=== PATIENT | female | born 1995 | race Caucasian/White ===

== ENCOUNTER 2019-12-29 22:58 | Emergency (ER) | payer SELFPAY ==
--- NOTE | 2019-12-30 00:30 | EDM.PDOC ---
ED HPI GENERAL MEDICAL PROBLEM - General Chief Complaint: Genitourinary Problem Stated Complaint: UTI Time Seen by Provider: 12/30/19 01:20 Source of Information: Reports: Patient History Limitations: Reports: No Limitations - History of Present Illness INITIAL COMMENTS - FREE TEXT/NARRATIVE: 24-year-old female presents to the ED with urinary frequency, urgency and dysuria for the last 4 or 5 days. She does not think she has been running a fever or experiencing any chills. She does have suprapubic abdominal pain and tenderness partially relieved by taking Azo [id number]. Appetite remains fair. Is her fourth infection within the last 6 months. Concerned about possibility of kidney stones or other sources for recurrent urinary tract infection. She is with an older gentleman and does indicate that she is fairly sexually active. Denies any possibility of as he has had a vasectomy. She has been on Cipro in the past for infection and Macrobid. She is only had 5 to 7 days of treatment and feels that she is never had the infection completely eradicated. Onset: Sudden Onset Date: 12/26/19 Duration: Day(s):, Getting Worse Location: Reports: Abdomen (Abdominal pressure discomfort and pain.), Other ( Has urinary frequency urgency and dysuria) Quality: Reports: Other Severity: Moderate (Frequency dysuria and urgency) Improves with: Reports: Other (Seems to make things better but makes her urine dark orange in color.) Worsens with: Reports: None Context: Denies: Activity, Exercise, Lifting, Sick Contact, Trauma, Other Associated Symptoms: Denies: No Other Symptoms, Confusion, Chest Pain, Cough, cough w sputum, Diaphoresis, Fever/Chills, Headaches, Loss of Appetite, Malaise , Nausea/Vomiting, Rash, Seizure, Shortness of Breath, Syncope, Weakness Treatments 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 Prior to this she had not experienced a UTI.) Social & Family History - Tobacco Use Smoking Status *Q: Current Every Day Smoker Years of Tobacco use: 7 Packs/Tins Daily: 1 - Recreational Drug Use Recreational Drug Use: No - Living Situation & Occupation Living situation: Reports: Occupation: Employed ED ROS GENERAL - Review of Systems Review Of Systems: See Below Constitutional: Reports: Malaise, Fatigue, Decreased Appetite. Denies: Fever, Chills HEENT: Reports: No Symptoms Respiratory: Reports: No Symptoms Cardiovascular: Reports: No Symptoms Endocrine: Reports: No Symptoms GI/Abdominal: Reports: Abdominal Pain (Prepubic abdominal pain) : Reports: Dysuria, Frequency, Urgency. Denies: Flank Pain, Irregular Menses Musculoskeletal: Reports: No Symptoms Skin: Reports: No Symptoms Neurological: Reports: No Symptoms Psychiatric: Reports: No Symptoms Hematologic/Lymphatic: Reports: No Symptoms Immunologic: Reports: No Symptoms ED EXAM, GI/ABD - Physical Exam Exam: See Below Exam Limited By: No Limitations General Appearance: Alert, WD/WN, No Apparent Distress, Other (Are as listed at 36.1 although she does feel mildly warm to palpation on her face.) Eyes: Bilateral: Normal Appearance Throat/Mouth: Normal Inspection, Normal Lips, Normal Teeth, Normal Oropharynx Head: Atraumatic, Normocephalic Neck: Normal Inspection, Supple, Non-Tender, Full Range of Motion. No: Lymphadenopathy (L), Lymphadenopathy (R) Respiratory/Chest: No Respiratory Distress, Lungs Clear, Normal Breath Sounds, No Accessory Muscle Use Cardiovascular: Normal Peripheral Pulses, Regular Rate, Rhythm, No Edema, No Gallop, No Murmur, No Rub GI/Abdominal Exam: Normal Bowel Sounds, Soft, Non-Tender, No Organomegaly, No Abnormal Bruit, No Mass, Pelvis Stable. No: Guarding, Rigid, Rebound, Tender Back Exam: Normal Inspection, Full Range of Motion. No: CVA Tenderness (L), CVA Tenderness (R) Extremities: Normal Inspection, Normal Range of Motion, Non-Tender Neurological: Alert, Oriented, CN II-XII Intact, Normal Cognition, Normal Gait Psychiatric: Normal Affect, Normal Mood Skin Exam: Warm, Dry, Intact, Normal Color, No Rash Course - Vital Signs Last Recorded V/S: Last Vital Signs Temp 36.1 C 12/29/19 23:24 Pulse 76 12/29/19 23:24 Resp 19 12/29/19 23:24 BP 123/70 12/29/19 23:24 Pulse Ox 100 12/29/19 23:24 - Orders/Labs/Meds Orders: Active Orders 24 hr Category Date Time Status Abdomen Pelvis wo Cont [CT] Stat Exams 12/30/19 00:39 Taken CULTURE URINE [RM] Stat Lab 12/30/19 00:53 Received Labs: Laboratory Tests 12/29/19 Range/Units 23:45 Urine Color Red H (Yellow) Urine Appearance Clear (Clear) Urine pH 5.0 (5.0-8.0) Ur Specific [place] 1.015 (1.005-1.030) Urine Protein 3+ H (Negative) Urine Glucose (UA) 1+ H (Negative) Urine Ketones 1+ H (Negative) Urine Occult Blood Negative (Negative) Urine Nitrite Positive H (Negative) Urine Bilirubin 2+ H (Negative) Urine Urobilinogen >=8.0 H (0.2-1.0) Ur Leukocyte Esterase 3+ H (Negative) Urine RBC 0-5 (0-5) /hpf Urine WBC 20-30 H (0-5) /hpf Ur Squamous Epith Cells 5-10 H (0-5) /hpf Urine Bacteria Moderate H (FEW) /hpf Urine Mucus Few (FEW) /hpf Meds: Medications Discontinued Medications Generic Name Dose Route Start Last Admin Trade Name Kim PRN Reason Stop Dose Admin Levofloxacin 500 mg 12/30/19 00:38 12/30/19 00:43 Levaquin PO 12/30/19 00:39 500 mg ONETIME ONE Administration - Radiology Interpretation Free Text/Narrative:: 24-year-old female presents the ED with acute urinary tract symptoms with urgency, frequency and dysuria x4 days. She reports this is her fourth urinary tract infection in the last 6 months. Getting Azo to relieve the urgency and frequency. Taking extra fluids. She does not feel that she has been running a fever and experienced no chills. She is concerned about possibility of a source for infection such as a kidney stone. No history of renal lithiasis. Scheduled to see a urologist in the near future. She denies any possibility of . Her has had a vasectomy. She is 0 para 0. Has appreciated the urine to be quite dark in color but since taking the Azo. - Re-Assessments/Exams Free Text/Narrative Re-Assessment/Exam: 12/30/19 00:28 Urinalysis is now back showing through 3+ proteinuria 1+ glucosuria 1+ ketones positive nitrates 3+ leukocyte esterase 20-30 WBCs per operative field and 0-5 RBCs. Moderate bacteria appreciated, culture ordered. She will be given the Levaquin 500 mg by mouth. 12/30/19 01:29 T of the abdomen pelvis has been performed per renal protocol. She does have a very small hiatal hernia. Liver appears homogeneous without any intraductal dilatation. Gallbladder is within normal limits showing no calcified gallstones. The stomach is full and seems to contain a calcified substance. Both kidneys are within normal limits. There is 3 small less than 1 mm stones embedded within the right renal medulla but there was no obstruction of the ureters. There was no bladder stones. There was scattered stool throughout the colon with a large amount of gas. Reassured in this regard. I therefore suspect her recurrent urinary tract infections are related to intercourse. She is instructed to empty her bladder 10 minutes after intercourse and to take a Macrobid 100 mg tablets after intercourse to try and prevent recurrent urinary tract infections. She has plans to follow-up with urologist in the near future. The plan will be to place her on Omnicef 300 mg twice daily for the next 12 days to clear up urinary tract infection as I suspect that she had a low-grade fever which would suggest early pyelonephritis. Departure - Departure Time of Disposition: 01:13 Disposition: Home, Self-Care 01 Condition: Fair Clinical Impression: UTI, Urinary tract infectious disease - Discharge Information *PRESCRIPTION DRUG MONITORING PROGRAM REVIEWED*: Not Applicable *COPY OF PRESCRIPTION DRUG MONITORING REPORT IN PATIENT JENNIFER: Not Applicable Prescriptions: Cefdinir [Omnicef] 300 mg PO BID #24 cap Nitrofurantoin Monohyd/M-Cryst [Macrobid 100 mg Capsule] 100 mg PO ASDIRECTED # 30 capsule Referrals: PCP,None [Primary Care Provider] - Forms: ED Department Discharge Additional Instructions: Evaluation emergency room tonight in regards to recurrent urinary tract infection over the last 6 months. You present to the ED with acute urinary tract symptoms of dysuria, urgency and frequency with lower abdominal discomfort and low-grade fever suggestive of early kidney infection. As you indicate this will be her fourth infection in 6 months. He of the abdomen and pelvis was completed today to make sure that there were no obstructive stones in the drainage tubes or ureters that could be causing recurrent urinary tract infection and none were found. No urinary bladder stones were identified either. You do have 3 small less than 1 mm stones embedded well within the tissue of the right kidney and none on the left. These may become problematic in the future but are not the source of recurrent infection. Likely source of recurrent infection is intercourse related. Suggest avoiding 10 minutes after intercourse and then taking antibiotic Macrobid 100 mg after intercourse to prevent recurrent urinary tract infection. In regards to treatment of today's urinary tract infection you were given an initial dose of antibiotic Levaquin 500 mg in the ED. You will need to fill the prescription tomorrow for antibiotic Omnicef 300 mg tablet twice daily for the next 12 days to clear up kidney infection. Suggest a repeat urinalysis be done by your primary care physician 7 to 10 days after finishing these antibiotics to make sure that infection has been completely eradicated. May use in 600 mg every 6 hours as needed if you develop fever, chills or increasing back pain. You should anticipate marked improvement in symptoms over the next 24 to 36 hours use Azo 1 tablet every 6 hours as needed to relieve burning and urinary frequency and urgency. Sepsis Event Note - Evaluation Sepsis Screening Result: No Definite Risk - Focused Exam Vital Signs: Vital Signs Temp Pulse Resp BP Pulse Ox 12/29/19 23:24 36.1 C 76 19 123/70 100 Date Exam was Performed: 12/30/19 Time Exam was Performed: :20 - My Orders Last 24 Hours: My Active Orders 12/30/19 00:39 Abdomen Pelvis wo Cont [CT] Stat 12/30/19 00:53 CULTURE URINE [RM] Stat - Assessment/Plan Last 24 Hours: My Active Orders 12/30/19 00:39 Abdomen Pelvis wo Cont [CT] Stat 12/30/19 00:53 CULTURE URINE [RM] Stat
[2019-12-30] MEDS ORDERED: Levofloxacin 250 MG Tab PO ONE (00:38)
--- NOTE | 2019-12-30 07:36 | CT ---
CT abdomen and pelvis Technique: Multiple axial sections were obtained from above the dome of the diaphragm inferiorly through the pubic symphysis. Intravenous and oral contrast was not utilized. Study has been performed as a ureteral stone protocol. Comparison: No previous abdominal imaging. Findings: Right kidney shows several minimal calcifications within the upper collecting system which are felt compatible with minimal nonobstructing calculi. No other abnormal calcifications are seen within the kidneys. No ureteral dilatation or ureteral calcifications are seen. Other calcifications are seen within the pelvis which are felt compatible with phleboliths. Visualized lung bases show nothing acute. Liver contains no focal parenchymal abnormality. Adrenal glands show no nodule. Pancreas shows no discrete abnormality. Gallbladder appears to be collapsed. Aorta shows no aneurysm. No retroperitoneal adenopathy or mesenteric abnormalities are seen. No pelvic mass or adenopathy is identified. Both ovaries are felt to be visualized and show follicles. Small amount of of air is identified within the bladder lumen. Appendix is felt to be seen and is normal in size. Bone window settings were reviewed which shows no acute osseous finding. Impression: 1. Small amount of air within the bladder presumably due to recent instrumentation. Please correlate. 2. Several very minimal calcifications within the upper right kidney compatible with nonobstructing renal stones. No ureteral dilatation or ureteral calcifications are seen. 3. No additional abnormality is appreciated on noncontrast CT study of the abdomen and pelvis. Diagnostic code #2 This report was dictated in [place] Standard Time I agree with preliminary report from [facility], finalized on 12/30/19, 2:35 AM Central Time
== END 2019-12-30 01:32 | disposition home or self-care (01) ==
LOC: JD.ED 22:58
DX: N39.0 Urinary tract infection, site not specified (principal); F17.210 Nicotine dependence, cigarettes, uncomplicated
CPT/HCPCS: 74176; 81001; 87086; 87088; 87186; 99284; A9270; 99283

== ENCOUNTER 2021-08-04 12:31 | Inpatient (IN) | payer MEDICARE, MEDICAID ==
[2021-08-04] MEDS ORDERED: Ondansetron 4 MG/2 ML SDV IVPUSH PRN ×2 (13:08→21:09)
[2021-08-04] MEDS ORDERED: Lidocaine 1% 50 ML MDV INJECT ONE (13:08)
[2021-08-04] MEDS ORDERED: Sodium Chloride 0.9% 10 ML Syringe FLUSH PRN (13:08)
[2021-08-04] MEDS ORDERED: Nalbuphine 10 MG/1 ML Vial IVPUSH PRN (13:08)
[2021-08-04] MEDS ORDERED: Oxytocin/Lactated Ringers 10 UNIT/1,000 ML BAG IV SCH ×2 (13:15)
[2021-08-04] MEDS ORDERED: Ampicillin 2 GM in Sodium Chloride 0.9% 100 ML IV ONE (13:30)
[2021-08-04] MEDS: Lactated Ringers 1,000 ML IV SCH ×4 (13:57→20:51)
[2021-08-04] MEDS ORDERED: Bupivacaine/fentaNYL/NS 100 ML Bag EPIDUR PRN (16:50)
[2021-08-04] MEDS ORDERED: diphenhydrAMINE 50 MG/ML SDV IVPUSH PRN ×3 (16:50→22:46)
[2021-08-04] MEDS ORDERED: fentaNYL 100 MCG/2 ML SDV EPIDUR PRN (16:50)
[2021-08-04] MEDS ORDERED: ePHEDrine 50 MG/ML SDV IVPUSH PRN ×2 (16:50→22:46)
--- NOTE | 2021-08-04 17:23 | PCM.PREANE ---
Preanesthetic Assessment - Procedure Proposed Procedure: ami - Anesthesia/Transfusion/Family Hx Type of Anesthesia Reaction: Excessive Nausea/Vomiting Family History of Anesthesia Reaction: No Transfusion History: No Prior Transfusion(s) - Review of Systems General: No Symptoms Pulmonary: Cough (smokers) Cardiovascular: No Symptoms Gastrointestinal: No Symptoms Neurological: No Symptoms Other: Reports: None - Physical Assessment Vital Signs: Last Vital Signs Temp 98.8 F 08/04/21 12:48 Pulse 88 08/04/21 12:48 Resp 16 08/04/21 12:48 BP 125/72 08/04/21 12:48 Pulse Ox 97 08/04/21 12:48 Height: 5 ft 4 in Weight: 76.113 kg ASA Class: 2 Mental Status: Alert & Oriented x3 Airway Class: Mallampati = 1 Dentition: Reports: Normal Dentition Thyro-Mental Finger Breadths: 3 Mouth Opening Finger Breadths: 3 ROM/Head Extension: Full Lungs: Clear to Auscultation, Normal Respiratory Effort Cardiovascular: Regular Rate, Regular Rhythm - Lab Values: Laboratory Last Values WBC 18.45 K/mm3 (3.98-10.04) H 08/04/21 13:30 RBC 3.76 M/mm3 (3.98-5.22) L 08/04/21 13:30 Hgb 12.0 gm/dl (11.2-15.7) 08/04/21 13:30 Hct 35.8 % (34.1-44.9) 08/04/21 13:30 MCV 95.2 fl (79.4-94.8) H 08/04/21 13:30 MCH 31.9 pg (25.6-32.2) 08/04/21 13:30 MCHC 33.5 g/dl (32.2-35.5) 08/04/21 13:30 RDW Std Deviation 43.2 fL (36.4-46.3) 08/04/21 13:30 Plt Count 428 K/mm3 (182-369) H 08/04/21 13:30 MPV 9.8 fl (9.4-12.3) 08/04/21 13:30 Neut % (Auto) 85.0 % (34.0-71.1) H 08/04/21 13:30 Lymph % (Auto) 8.5 % (19.3-51.7) L 08/04/21 13:30 [place] % (Auto) 4.7 % (4.7-12.5) 08/04/21 13:30 Eos % (Auto) 1.1 (0.7-5.8) 08/04/21 13:30 Baso % (Auto) 0.1 % (0.1-1.2) 08/04/21 13:30 Neut # (Auto) 15.68 K/mm3 (1.56-6.13) H 08/04/21 13:30 Lymph # (Auto) 1.57 K/mm3 (1.18-3.74) 08/04/21 13:30 [place] # (Auto) 0.87 K/mm3 (0.24-0.36) H 08/04/21 13:30 Eos # (Auto) 0.20 K/mm3 (0.04-0.36) 08/04/21 13:30 Baso # (Auto) 0.02 K/mm3 (0.01-0.08) 08/04/21 13:30 SARS-CoV-2 RNA (YANDEL) Negative (NEGATIVE) 08/04/21 13:18 Blood Type A POSITIVE 08/04/21 13:30 Gel Antibody Screen Negative 08/04/21 13:30 - Allergies Allergies/Adverse Reactions: Allergies Allergy/AdvReac Type Severity Reaction Status Date / Time No Known Allergies Allergy Verified 08/04/21 12:41 - Acknowledgements Anesthesia Type Planned: Epidural Pt an Appropriate Candidate for the Planned Anesthesia: Yes Alternatives and Risks of Anesthesia Discussed w Pt/Guardian: Yes Pt/Guardian Understands and Agrees with Anesthesia Plan: Yes PreAnesthesia Questionnaire - Past Health History Medical/Surgical History: Denies Medical/Surgical History Cardiovascular History: Reports: Heart Murmur Respiratory History: Reports: None Gastrointestinal History: Reports: None Genitourinary History: Reports: UTI, Recurrent Psychiatric History: Reports: Bipolar, Depression, Suicide Attempt, Other (See Below) Other Psychiatric History: Pt reports history of suicide attempt 10 years ago. Hematologic History: Reports: Anemia - Past Surgical History Musculoskeletal Surgical History: Reports: Other (See Below) (wrist) - SUBSTANCE USE Tobacco Use Status *Q: Current Every Day Tobacco User Tobacco Use Within Last Twelve Months: Cigarettes Second Hand Smoke Exposure: Yes Days Per Week of Alcohol Use: 0 Recreational Drug Use History: No - HOME MEDS Home Medications: Home Meds Ferrous Sulfate [Iron] 325 mg PO DAILY 08/04/21 [History] Nitrofurantoin Monohyd/M-Cryst [Macrobid 100 mg Capsule] 100 mg PO DAILY 08/04/21 [History] No122/Iron/Folic Acid [ Multi Tablet] 1 each PO DAILY 08/04/21 [History] - CURRENT (IN HOUSE) MEDS Current Meds: Current Medications Diphenhydramine HCl (Diphenhydramine 50 Mg/Ml Sdv) 25 mg IVPUSH Q6H PRN PRN Reason: pruritis Ephedrine Sulfate (Ephedrine 50 Mg/Ml Sdv) 5 mg IVPUSH ASDIRECTED PRN PRN Reason: Hypotension Fentanyl (Fentanyl 100 Mcg/2 Ml Sdv) 100 mcg EPIDUR Q3H PRN PRN Reason: Pain Last Admin: 08/04/21 17:03 Dose: 100 mcg Documented by: Fentanyl/Bupivacaine HCl (Bupivacaine/Fentanyl/Ns 100 Ml Bag) 100 ml EPIDUR ASDIRECTED PRN PRN Reason: Pain Ampicillin Sodium 1 gm/ Sodium (Chloride) 100 mls @ 200 mls/hr IV Q4H ELDER Oxytocin/Lactated Ringer's (Pitocin In Lr 10 Units/1,000 Ml) 10 unit in 1,000 mls @ 12 mls/hr IV TITRATE ELDER; Protocol Oxytocin/Lactated Ringer's (Pitocin In Lr 10 Units/1,000 Ml) 10 unit in 1,000 mls @ 500 mls/hr IV .CONTINUOUS ELDER; Protocol Lactated Ringer's (Ringers, Lactated) 1,000 mls @ 100 mls/hr IV ASDIRECTED ELDER Last Admin: 08/04/21 16:34 Dose: 100 mls/hr Documented by: Nalbuphine HCl (Nalbuphine 10 Mg/1 Ml Vial) 10 mg IVPUSH Q2H PRN PRN Reason: Pain Ondansetron HCl (Ondansetron 4 Mg/2 Ml Sdv) 4 mg IVPUSH Q4H PRN PRN Reason: Nausea/Vomiting Sodium Chloride (Sodium Chloride 0.9% 10 Ml Syringe) 10 ml FLUSH ASDIRECTED PRN PRN Reason: Keep Vein Open Discontinued Medications Ampicillin Sodium 2 gm/ Sodium (Chloride) 100 mls @ 200 mls/hr IV ONETIME ONE Stop: 08/04/21 13:59 Last Admin: 08/04/21 13:57 Dose: 200 mls/hr Documented by: Lidocaine HCl (Lidocaine 1% 50 Ml Mdv) 50 ml INJECT ONETIME ONE Stop: 08/04/21 13:09
[2021-08-04] MEDS: Ampicillin 1 GM in Sodium Chloride 0.9% 100 ML IV SCH ×2 (17:31→22:47)
[2021-08-04] MEDS ORDERED: Bupivacaine 0.25% 10 ML SDV ONE (18:00)
[2021-08-04] MEDS ORDERED: Metoclopramide 10 MG/2 ML SDV ONE (20:25)
[2021-08-04] MEDS ORDERED: Citric Acid/Sodium Citrate Solution 30 ML Cup ONE (20:25)
[2021-08-04] MEDS ORDERED: ceFAZolin 2 GM in Premix Bag 1 BAG IV ONE (20:26)
[2021-08-04] MEDS ORDERED: Metoclopramide 10 MG/2 ML SDV IVPUSH ONE (20:27)
[2021-08-04] MEDS ORDERED: Citric Acid/Sodium Citrate Solution 30 ML Cup PO ONE (20:30)
[2021-08-04] MEDS ORDERED: Azithromycin 500 MG in Sodium Chloride 0.9% 250 ML IV ONE (20:30)
[2021-08-04] MEDS ORDERED: Bupivacaine 0.5% 30 ML SDV ONE (20:36)
[2021-08-04] MEDS ORDERED: Lactated Ringers 2,000 ML ONE (20:37)
[2021-08-04] MEDS ORDERED: Ketorolac 30 MG/ML SDV ONE (20:37)
[2021-08-04] MEDS ORDERED: Oxytocin 10 Units/1 ML SDV ONE (20:37)
[2021-08-04] MEDS ORDERED: Ondansetron 4 MG/2 ML SDV ONE ×2 (20:37→21:13)
[2021-08-04] MEDS ORDERED: ceFAZolin 1 GM Vial ONE (20:37)
--- NOTE | 2021-08-04 20:39 | PCM.LDHP ---
L&D History of Present Illness - General Date of Service: 08/04/21 Admit Problem/Dx: Patient Status Order with Admit Dx/Problem 08/04/21 13:09 Patient Status [ADT] Routine Admission Diagnosis/Problem Admission Diagnosis/Problem - History of Present Illness Introduction:: 26 year old at 39w1 here in labor. PNC with myself without complications Pain Score: 0 - Related Data Allergies/Adverse Reactions: Allergies Allergy/AdvReac Type Severity Reaction Status Date / Time No Known Allergies Allergy Verified 08/04/21 12:41 Home Medications: Home Meds Ferrous Sulfate [Iron] 325 mg PO DAILY 08/04/21 [History] Nitrofurantoin Monohyd/M-Cryst [Macrobid 100 mg Capsule] 100 mg PO DAILY 08/04/21 [History] No122/Iron/Folic Acid [ Multi Tablet] 1 each PO DAILY 08/04/21 [History] Past Medical History - Past Health History Medical/Surgical History: Denies Medical/Surgical History Cardiovascular History: Reports: Heart Murmur Respiratory History: Reports: None Gastrointestinal History: Reports: None Genitourinary History: Reports: UTI, Recurrent Psychiatric History: Reports: Bipolar, Depression, Suicide Attempt, Other (See Below) Other Psychiatric History: Pt reports history of suicide attempt 10 years ago. Hematologic History: Reports: Anemia - Past Surgical History Musculoskeletal Surgical History: Reports: Other (See Below) (wrist) Social & Family History - Family History Family Medical History: No Pertinent Family History - Tobacco Use Tobacco Use Status *Q: Current Every Day Tobacco User Years of Tobacco use: 10 Packs/Tins Daily: 1 Used Tobacco, but Quit: No Second Hand Smoke Exposure: Yes - Caffeine Use Caffeine Use: Reports: None - Alcohol Use Days Per Week of Alcohol Use: 0 - Recreational Drug Use Recreational Drug Use: No - Living Situation & Occupation Living situation: Reports: Occupation: Employed H&P Review of Systems - Review of Systems: Review Of Systems: See Below General: Reports: No Symptoms HEENT: Reports: No Symptoms Pulmonary: Reports: No Symptoms Cardiovascular: Reports: No Symptoms Gastrointestinal: Reports: No Symptoms Genitourinary: Reports: No Symptoms Musculoskeletal: Reports: No Symptoms Skin: Reports: No Symptoms Psychiatric: Reports: No Symptoms Neurological: Reports: No Symptoms Hematologic/Lymphatic: Reports: No Symptoms Immunologic: Reports: No Symptoms L&D Exam - Exam Exam: See Below - Vital Signs Vital Signs: Last Vital Signs Temp 37.1 C 08/04/21 12:48 Pulse 88 08/04/21 12:48 Resp 16 08/04/21 12:48 BP 125/72 08/04/21 12:48 Pulse Ox 97 08/04/21 12:48 Weight: 76.113 kg - OB Specific Contraction Intensity: Moderate to Strong Movement: Active Heart Tones: Present Heart Rate (FHR) Variability: Moderate (6-25 bpm) Presentation: Vertex - Esposito Score Esposito Score Cervix Position: Midposition Esposito Score Consistency: Soft Esposito Score Effacement: 51-70% Esposito Score 's Station: -2 - Exam General: Alert, Oriented HEENT: PERRLA, Conjunctiva Clear, EACs Clear, EOMI, Hearing Intact, Mucosa Moist & [place], Nares Patent, Normal Nasal Septum, Posterior Pharynx Clear, TMs Clear Neck: Supple, Trachea Midline Lungs: Clear to Auscultation, Normal Respiratory Effort Cardiovascular: Regular Rate, Regular Rhythm GI/Abdominal Exam: Normal Bowel Sounds, Soft, Non-Tender, No Organomegaly, No Distention, No Abnormal Bruit, No Mass, Pelvis Stable Rectal Exam: Normal Exam Extremities: Normal Inspection, Normal Range of Motion, Non-Tender, No Pedal Edema, Normal Capillary Refill Skin: Warm, Dry, Intact Neurological: Cranial Nerves Intact, Reflexes Equal Bilateral Psychiatric: Alert, Normal Affect, Normal Mood - Patient Data Lab Results Last 24 hrs: Laboratory Results - last 24 hr 08/04/21 08/04/21 08/04/21 Range/Units 13:18 13:30 13:30 WBC 18.45 H (3.98-10.04) K/mm3 RBC 3.76 L (3.98-5.22) M/mm3 Hgb 12.0 (11.2-15.7) gm/dl Hct 35.8 (34.1-44.9) % MCV 95.2 H (79.4-94.8) fl MCH 31.9 (25.6-32.2) pg MCHC 33.5 (32.2-35.5) g/dl RDW Std Deviation 43.2 (36.4-46.3) fL Plt Count 428 H (182-369) K/mm3 MPV 9.8 (9.4-12.3) fl Neut % (Auto) 85.0 H (34.0-71.1) % Lymph % (Auto) 8.5 L (19.3-51.7) % [place] % (Auto) 4.7 (4.7-12.5) % Eos % (Auto) 1.1 (0.7-5.8) Baso % (Auto) 0.1 (0.1-1.2) % Neut # (Auto) 15.68 H (1.56-6.13) K/mm3 Lymph # (Auto) 1.57 (1.18-3.74) K/mm3 [place] # (Auto) 0.87 H (0.24-0.36) K/mm3 Eos # (Auto) 0.20 (0.04-0.36) K/mm3 Baso # (Auto) 0.02 (0.01-0.08) K/mm3 SARS-CoV-2 RNA (YANDEL) Negative (NEGATIVE) Blood Type A POSITIVE Gel Antibody Screen Negative Result Diagrams: 08/04/21 13:30 Problem List Initiated/Reviewed/Updated: Yes Orders Last 24hrs: Active Orders 24 hr Category Date Time Status Patient Status [ADT] Routine ADT 08/04/21 13:09 Active Activity as Tolerated [RC] PFP Care 08/04/21 13:09 Active Communication Order [RC] ASDIRECTED Care 08/04/21 13:09 Active Heart Tones [RC] ASDIRECTED Care 08/04/21 13:10 Active Non Stress Test [RC] PER UNIT ROUTINE Care 08/04/21 13:09 Active Notify Provider [RC] ASDIRECTED Care 08/04/21 16:50 Active Notify Provider [RC] PFP Care 08/04/21 13:09 Active Notify Provider [RC] PRN Care 08/04/21 13:09 Active Peripheral IV Care [RC] . DIRECTED Care 08/04/21 13:10 Active Procedure Site Prep Instruct [RC] ASDIRECTED Care 08/04/21 20:21 Active Pump Management, Intrathecal [RC] ASDIRECTED Care 08/04/21 13:11 Active Urinary Catheter Assessment [RC] ASDIRECTED Care 08/04/21 13:08 Active Verify Patient Consent Obtain [RC] PER UNIT ROUTINE Care 08/04/21 20:21 Active Vital Signs [RC] PER UNIT ROUTINE Care 08/04/21 13:09 Active Regular Diet [DIET] Diet 08/04/21 Breakfast Active RAPID PLASMA REAGIN,RPR [CHEM] Routine Lab 08/04/21 13:30 Received Ampicillin 1 gm Med 08/04/21 17:30 Active Sodium Chloride 0.9% [Normal Saline] 100 ml IV Q4H Azithromycin [Zithromax] 500 mg Med 08/04/21 20:30 Active Sodium Chloride 0.9% [Normal Saline (AdvBag)] 250 ml IV ONETIME Bupivacaine/fentaNYL/NS [fentaNYL/Bupivacaine/NS 2 MCG- Med 08/04/21 16:50 Active 0.125% 100 ML] 100 ml EPIDUR ASDIRECTED PRN Lactated Ringers [Ringers, Lactated] 1,000 ml Med 08/04/21 13:15 Active IV ASDIRECTED Nalbuphine [Nubain] Med 08/04/21 13:08 Active 10 mg IVPUSH Q2H PRN Ondansetron [Zofran] Med 08/04/21 13:08 Active 4 mg IVPUSH Q4H PRN Oxytocin/Lactated Ringers [Pitocin in LR 10 Units/1,000 Med 08/04/21 13:15 Active ML] 10 unit in 1,000 ml IV .CONTINUOUS Oxytocin/Lactated Ringers [Pitocin in LR 10 Units/1,000 Med 08/04/21 13:15 Active ML] 10 unit in 1,000 ml IV TITRATE Sodium Chloride 0.9% [Saline Flush] Med 08/04/21 13:08 Active 10 ml FLUSH ASDIRECTED PRN ceFAZolin [Ancef 2 GM/50 ML] 2 gm Med 08/04/21 20:26 Active Premix Bag 1 bag IV ONETIME diphenhydrAMINE [Benadryl] Med 08/04/21 16:50 Active 25 mg IVPUSH Q6H PRN ePHEDrine [ePHEDrine sulfate] Med 08/04/21 16:50 Active 5 mg IVPUSH ASDIRECTED PRN fentaNYL [Sublimaze] Med 08/04/21 16:50 Active 100 mcg EPIDUR Q3H PRN Electronic Heart Tones Ext w TOCO [WOMSER] Oth 08/04/21 13:09 Ordered Routine Electronic Heart Tones Internal [WOMSER] Per Unit Oth 08/04/21 13:09 Ordered Routine Peripheral IV Insertion Adult [OM.PC] Routine Oth 08/04/21 13:09 Ordered Schedule Procedure [COMM] Per Unit Routine Oth 08/04/21 20:21 Ordered Resuscitation Status Routine Resus Stat 08/04/21 13:08 Ordered Medication Orders Diphenhydramine HCl (Diphenhydramine 50 Mg/Ml Sdv) 25 mg IVPUSH Q6H PRN PRN Reason: pruritis Ephedrine Sulfate (Ephedrine 50 Mg/Ml Sdv) 5 mg IVPUSH ASDIRECTED PRN PRN Reason: Hypotension Fentanyl (Fentanyl 100 Mcg/2 Ml Sdv) 100 mcg EPIDUR Q3H PRN PRN Reason: Pain Last Admin: 08/04/21 17:03 Dose: 100 mcg Documented by: SUSAN Fentanyl/Bupivacaine HCl (Bupivacaine/Fentanyl/Ns 100 Ml Bag) 100 ml EPIDUR ASDIRECTED PRN PRN Reason: Pain Last Admin: 08/04/21 17:43 Dose: 100 ml Documented by: SUSAN Ampicillin Sodium 1 gm/ Sodium (Chloride) 100 mls @ 200 mls/hr IV Q4H ELDER Last Admin: 08/04/21 17:31 Dose: 200 mls/hr Documented by: SUSAN Oxytocin/Lactated Ringer's (Pitocin In Lr 10 Units/1,000 Ml) 10 unit in 1,000 mls @ 12 mls/hr IV TITRATE ELDER; Protocol Oxytocin/Lactated Ringer's (Pitocin In Lr 10 Units/1,000 Ml) 10 unit in 1,000 mls @ 500 mls/hr IV .CONTINUOUS ELDER; Protocol Lactated Ringer's (Ringers, Lactated) 1,000 mls @ 100 mls/hr IV ASDIRECTED ELDER Last Infusion: 08/04/21 20:24 Dose: 999 mls/hr Documented by: Admin: 08/04/21 18:38 Dose: 100 mls/hr Documented by: Infusion: 08/04/21 18:38 Dose: 100 mls/hr Documented by: Admin: 08/04/21 16:34 Dose: 100 mls/hr Documented by: Infusion: 08/04/21 16:34 Dose: 100 mls/hr Documented by: [id number] Admin: 08/04/21 13:57 Dose: 100 mls/hr Documented by: [email or web address] Cefazolin Sodium/Dextrose 2 gm (/ Premix) 50 mls @ 100 mls/hr IV ONETIME ONE Stop: 08/04/21 20:55 Azithromycin 500 mg/ Sodium (Chloride) 250 mls @ 250 mls/hr IV ONETIME ONE Stop: 08/04/21 21:29 Last Admin: 08/04/21 20:34 Dose: 250 mls/hr Documented by: STEFANIE Nalbuphine HCl (Nalbuphine 10 Mg/1 Ml Vial) 10 mg IVPUSH Q2H PRN PRN Reason: Pain Ondansetron HCl (Ondansetron 4 Mg/2 Ml Sdv) 4 mg IVPUSH Q4H PRN PRN Reason: Nausea/Vomiting Sodium Chloride (Sodium Chloride 0.9% 10 Ml Syringe) 10 ml FLUSH ASDIRECTED PRN PRN Reason: Keep Vein Open Assessment/Plan Comment:: 26 in active labor. AROM of clear fluid Planning epidural.
--- NOTE | 2021-08-04 20:40 | PCM.PNLD ---
Labor Progress Note - VS & Meds Vital Signs: Last Vital Signs Temp 37.1 C 08/04/21 12:48 Pulse 88 08/04/21 12:48 Resp 16 08/04/21 12:48 BP 125/72 08/04/21 12:48 Pulse Ox 97 08/04/21 12:48 Active Medications: Current Medications Diphenhydramine HCl (Diphenhydramine 50 Mg/Ml Sdv) 25 mg IVPUSH Q6H PRN PRN Reason: pruritis Ephedrine Sulfate (Ephedrine 50 Mg/Ml Sdv) 5 mg IVPUSH ASDIRECTED PRN PRN Reason: Hypotension Fentanyl (Fentanyl 100 Mcg/2 Ml Sdv) 100 mcg EPIDUR Q3H PRN PRN Reason: Pain Last Admin: 08/04/21 17:03 Dose: 100 mcg Documented by: Fentanyl/Bupivacaine HCl (Bupivacaine/Fentanyl/Ns 100 Ml Bag) 100 ml EPIDUR ASDIRECTED PRN PRN Reason: Pain Last Admin: 08/04/21 17:43 Dose: 100 ml Documented by: Ampicillin Sodium 1 gm/ Sodium (Chloride) 100 mls @ 200 mls/hr IV Q4H ELDER Last Admin: 08/04/21 17:31 Dose: 200 mls/hr Documented by: Oxytocin/Lactated Ringer's (Pitocin In Lr 10 Units/1,000 Ml) 10 unit in 1,000 mls @ 12 mls/hr IV TITRATE ELDER; Protocol Oxytocin/Lactated Ringer's (Pitocin In Lr 10 Units/1,000 Ml) 10 unit in 1,000 mls @ 500 mls/hr IV .CONTINUOUS ELDER; Protocol Lactated Ringer's (Ringers, Lactated) 1,000 mls @ 100 mls/hr IV ASDIRECTED ELDER Last Infusion: 08/04/21 20:24 Dose: 999 mls/hr Documented by: Cefazolin Sodium/Dextrose 2 gm (/ Premix) 50 mls @ 100 mls/hr IV ONETIME ONE Stop: 08/04/21 20:55 Azithromycin 500 mg/ Sodium (Chloride) 250 mls @ 250 mls/hr IV ONETIME ONE Stop: 08/04/21 21:29 Last Admin: 08/04/21 20:34 Dose: 250 mls/hr Documented by: Nalbuphine HCl (Nalbuphine 10 Mg/1 Ml Vial) 10 mg IVPUSH Q2H PRN PRN Reason: Pain Ondansetron HCl (Ondansetron 4 Mg/2 Ml Sdv) 4 mg IVPUSH Q4H PRN PRN Reason: Nausea/Vomiting Sodium Chloride (Sodium Chloride 0.9% 10 Ml Syringe) 10 ml FLUSH ASDIRECTED PRN PRN Reason: Keep Vein Open Discontinued Medications Bupivacaine HCl (Bupivacaine 0.5% 30 Ml Sdv) Confirm Administered Dose 30 ml .ROUTE .STK-MED ONE Stop: 08/04/21 20:37 Cefazolin Sodium (Cefazolin 1 Gm Vial) Confirm Administered Dose 2 gm .ROUTE .STK-MED ONE Stop: 08/04/21 20:38 Citric Acid/Sodium Citrate (Citric Acid/Sodium Citrate Solution 30 Ml Cup) 30 ml PO ONETIME ONE Stop: 08/04/21 20:31 Last Admin: 08/04/21 20:33 Dose: 30 ml Documented by: Citric Acid/Sodium Citrate (Citric Acid/Sodium Citrate Solution 30 Ml Cup) Confirm Administered Dose 30 ml .ROUTE .STK-MED ONE Stop: 08/04/21 20:26 Ampicillin Sodium 2 gm/ Sodium (Chloride) 100 mls @ 200 mls/hr IV ONETIME ONE Stop: 08/04/21 13:59 Last Admin: 08/04/21 13:57 Dose: 200 mls/hr Documented by: Lactated Ringer's (Ringers, Lactated) Confirm Administered Dose 2,000 mls @ as directed .ROUTE .STK-MED ONE Stop: 08/04/21 20:38 Ketorolac Tromethamine (Ketorolac 30 Mg/Ml Sdv) Confirm Administered Dose 30 mg .ROUTE .STK-MED ONE Stop: 08/04/21 20:38 Lidocaine HCl (Lidocaine 1% 50 Ml Mdv) 50 ml INJECT ONETIME ONE Stop: 08/04/21 13:09 Metoclopramide HCl (Metoclopramide 10 Mg/2 Ml Sdv) 10 mg IVPUSH ONETIME ONE Stop: 08/04/21 20:28 Last Admin: 08/04/21 20:34 Dose: 10 mg Documented by: Metoclopramide HCl (Metoclopramide 10 Mg/2 Ml Sdv) Confirm Administered Dose 10 mg .ROUTE .STK-MED ONE Stop: 08/04/21 20:26 Ondansetron HCl (Ondansetron 4 Mg/2 Ml Sdv) Confirm Administered Dose 4 mg .ROUTE .STK-MED ONE Stop: 08/04/21 20:38 Oxytocin (Oxytocin 10 Units/1 Ml Sdv) Confirm Administered Dose 10 unit .ROUTE .STK-MED ONE Stop: 08/04/21 20:38 - Uterine Contractions Contraction Intensity: Moderate to Strong - Monitoring Heart Rate (FHR) Variability: Moderate (6-25 bpm) Strip Review: Category I - Labor Progress (Free Text) Labor Progress: On RN exam estefania breech. Ultrasound confirmed. RBA of discussed. Patient voices understanding and wishes to proceed.
[2021-08-04] MEDS ORDERED: Sodium Bicarbonate 8.4% 50 MEQ/50 ML SDV ONE (20:41)
[2021-08-04] MEDS ORDERED: Lidocaine 2% with EPINEPHrine 1:200,000 20 ML SDV ONE (20:41)
[2021-08-04] MEDS ORDERED: Morphine PF 10 MG/10 ML SDV ONE (20:42)
[2021-08-04] MEDS ORDERED: Meperidine 50 MG/ML Vial IVPUSH PRN (21:09)
[2021-08-04] MEDS ORDERED: fentaNYL 100 MCG/2 ML SDV IVPUSH PRN (21:09)
--- NOTE | 2021-08-04 21:51 | PCM.POSTAN ---
POST ANESTHESIA ASSESSMENT - MENTAL STATUS Mental Status: Alert, Oriented - VITAL SIGNS Vital Signs: Last Vital Signs Temp 98.8 F 08/04/21 12:48 Pulse 88 08/04/21 12:48 Resp 16 08/04/21 12:48 BP 125/72 08/04/21 12:48 Pulse Ox 97 08/04/21 12:48 2143 114/60 100% 90 18 98.3 - RESPIRATORY Respiratory Status: Respiratory Rate WNL, Airway Patent, O2 Saturation Stable, Supplemental Oxygen - CARDIOVASCULAR CV Status: Pulse Rate WNL, Blood Pressure Stable - GASTROINTESTINAL GI Status: No Symptoms - PAIN Pain Score: 0 - POST OP HYDRATION Hydration Status: Adequate & Stable
--- NOTE | 2021-08-04 21:54 | PCM.OPNOTE ---
- General Post-Op/Procedure Note Date of Surgery/Procedure: 08/04/21 Operative Procedure(s): primary section Findings: Viable male, weight 6#12oz, 8/9 apgars at 2110. Normal uterus tubes and ovaries. Breech. Pre Op Diagnosis: breech, 39w1d Post-Op Diagnosis: Same Anesthesia Technique: Epidural Primary Surgeon: Jennifer Plascencia Anesthesia Provider: Zaina Marques Crew Attendant: Willow Young Pathology: none Fluid Replacement, Intraop: 1,500 Output, Urine Amount: 150 EBL in mLs: 700 Complications: None Condition: Good Free Text/Narrative:: Intake & Output 08/04/21 08/04/21 08/04/21 06:59 14:59 22:59 Intake Total 3520 Output Total 550 Balance 2970 The patient was taken to the operating room where epidural anesthesia was dosed to surgical levels without difficulty. The patient was prepped and draped in the usual sterile fashion in the dorsal supine position with a leftward tilt. A Pfannenstiel skin incision was made with the scalpel and carried through to the underlying layer of fascia. The fascia was incised in the midline and extended laterally using Spangler scissors. Aida clamps were used to elevate the superior aspect of the fascial incision, which was elevated, and the underlying rectus muscles were dissected off bluntly and using Spangler scissors. Attention was then turned to the inferior aspect of the fascial incision, which in similar fashion was grasped with Aida clamps, elevated, and the underlying rectus muscles were dissected off bluntly and using the spangler. The rectus muscles were dissected in the midline. The peritoneum was entered bluntly; this incision was extended superiorly and inferiorly with good visualization of the bladder. The bladder blade was inserted. The vesicouterine peritoneum was identified and entered sharply using Metzenbaum scissors. This incision was extended laterally and the bladder flap was created digitally. The bladder blade was reinserted. The lower uterine segment was incised in a transverse fashion using the scalpel and with digital traction. Clear fluid was noted. The infant was subsequently delivered by usual breech maneuvers. The cord was clamped and cut. The was subsequently handed to the awaiting roll grinder whose presence had been requested.. The placenta was expressed intact with a three-vessel cord noted. The uterus was exteriorized and cleared of all clots and debris. The uterine incision was repaired in 2 layers using 0 monocryl. Hemostasis was visualized. Hemostasis was visualized bilaterally. The uterus was returned to the abdomen. The uterine incision was reexamined and it was noted to be hemostatic. The pelvis was copiously irrigated. The fascia was closed with 1 PDS suture, and the skin was closed with 3-0 monocryl. Sponge, lap, and instrument counts were correct x2. The patient was stable at the completion of the procedure and was subsequently transferred to the recovery room in stable condition.
[2021-08-04] MEDS ORDERED: Naloxone 0.4 MG/ML SDV IVPUSH PRN (22:46)
[2021-08-04] MEDS ORDERED: Dextrose 5%-Lactated Ringers 1,000 ML IV SCH (22:46)
[2021-08-05] MEDS: Acetaminophen/oxyCODONE 325-5 MG Tab PO PRN ×3 (00:17→19:56)
[2021-08-05] MEDS: Ketorolac 30 MG/ML SDV IVPUSH SCH ×3 (03:33→15:15)
--- NOTE | 2021-08-05 07:45 | PCM48HPAN ---
Post Anesthesia Note - EVALUATION WITHIN 48HRS OF ANESTHETIC Vital Signs in Normal Range: Yes Patient Participated in Evaluation: Yes Respiratory Function Stable: Yes Airway Patent: Yes Cardiovascular Function Stable: Yes Hydration Status Stable: Yes Pain Control Satisfactory: Yes Nausea and Vomiting Control Satisfactory: Yes Mental Status Recovered: Yes Vital Signs: Last Vital Signs Temp 97.5 F 08/05/21 03:35 Pulse 74 08/05/21 03:35 Resp 14 08/05/21 06:54 BP 117/59 L 08/05/21 03:35 Pulse Ox 97 08/05/21 06:54 - COMMENTS/OBSERVATIONS Free Text/Narrative:: Patient resting in bed holding baby when visiting with patient. Patient stated that she was "very happy" with her epidural and experience. Patient complained of mild back pain in epidural placement site but is controlled and has not gotten worse. Discussed signs and symptoms of infection, post-dural puncture headaches, post- depression, and if patient experiences increased back discomfort. Encouraged patient if any of those signs or symptoms develop to contact OB/Anesthesia so the patient can be treated accordingly if needed. Patient verbalized understanding. Patient did not voice any questions or concerns at this time. Marie Young, FOOD TECHNOLOGY TEACHER
[2021-08-05] MEDS: Nicotine 21 MG/24 Hr Patch TRDERM SCH (11:24)
--- NOTE | 2021-08-05 16:34 | PCM.SN.2 ---
- Free Text/Narrative Note: Post Operative Progress Note POD #1 Subjective: Doing well overall. Ambulating without difficulty. Lochia minimal. Stuart draining clear urine. Passing flatus. Tolerating regular diet without nausea or vomiting. Pain controlled with oral medications. Breast-feeding with minimal difficulty. Objective: Vitals: Vital Signs - 24 hr 08/04/21 08/04/21 08/04/21 21:43 21:45 22:00 Temperature Temperature [ 36.8 C 36.6 C 36.5 C Temporal] Pulse, Peripheral Pulse, 90 77 80 Peripheral [ Pulse Oximetry] Respiratory 18 16 13 Rate Blood Pressure Blood Pressure 134/71 114/60 112/56 L [Left Upper Arm ] O2 Sat by Pulse 100 98 99 Oximetry O2 Sat by Pulse 100 100 Oximetry [ Nasal Cannula] 08/04/21 08/04/21 08/04/21 22:15 22:30 23:01 Temperature 36.7 C Temperature [ 36.3 C 36.6 C Temporal] Pulse, 99 Peripheral Pulse, 89 86 Peripheral [ Pulse Oximetry] Respiratory 15 13 16 Rate Blood Pressure 122/65 Blood Pressure 114/53 L 111/58 L [Left Upper Arm ] O2 Sat by Pulse 99 95 96 Oximetry O2 Sat by Pulse 99 100 Oximetry [ Nasal Cannula] 08/04/21 08/05/21 08/05/21 23:33 00:07 01:00 Temperature 37.3 C 36.7 C Temperature [ Temporal] Pulse, 104 H 105 H Peripheral Pulse, Peripheral [ Pulse Oximetry] Respiratory 14 16 16 Rate Blood Pressure 122/63 99/80 Blood Pressure [Left Upper Arm ] O2 Sat by Pulse 96 97 98 Oximetry O2 Sat by Pulse Oximetry [ Nasal Cannula] 08/05/21 08/05/21 08/05/21 01:54 02:55 03:35 Temperature 36.3 C 36.4 C Temperature [ Temporal] Pulse, 78 74 Peripheral Pulse, Peripheral [ Pulse Oximetry] Respiratory 14 14 14 Rate Blood Pressure 126/81 117/59 L Blood Pressure [Left Upper Arm ] O2 Sat by Pulse 100 97 97 Oximetry O2 Sat by Pulse Oximetry [ Nasal Cannula] 08/05/21 08/05/21 08/05/21 08:00 09:00 09:05 Temperature 36.6 C Temperature [ Temporal] Pulse, 77 Peripheral Pulse, Peripheral [ Pulse Oximetry] Respiratory 15 15 15 Rate Blood Pressure 104/58 L Blood Pressure [Left Upper Arm ] O2 Sat by Pulse 99 98 99 Oximetry O2 Sat by Pulse Oximetry [ Nasal Cannula] Physical Exam General: Alert and oriented, no acute distress Lungs: Clear to auscultation bilaterally Heart: Regular rate and rhythm Abdomen: Soft, minimal appropriate tenderness, non-distended, fundus midline, nontender and at the umbilicus Incision: Clean, dry and intact, no erythema, bleeding or drainage with Steri- Strips in place Extremities: No edema Labs: Laboratory Results - last 24 hr 08/04/21 08/05/21 Range/Units 13:30 09:44 WBC 14.40 H (3.98-10.04) K/mm3 RBC 3.09 L (3.98-5.22) M/mm3 Hgb 9.8 L D (11.2-15.7) gm/dl Hct 30.0 L (34.1-44.9) % MCV 97.1 H (79.4-94.8) fl MCH 31.7 (25.6-32.2) pg MCHC 32.7 (32.2-35.5) g/dl RDW Std Deviation 43.3 (36.4-46.3) fL Plt Count 350 D (182-369) K/mm3 MPV 9.6 (9.4-12.3) fl Neut % (Auto) 79.5 H (34.0-71.1) % Lymph % (Auto) 12.8 L (19.3-51.7) % [place] % (Auto) 6.3 (4.7-12.5) % Eos % (Auto) 1.0 (0.7-5.8) Baso % (Auto) 0.1 (0.1-1.2) % Neut # (Auto) 11.45 H (1.56-6.13) K/mm3 Lymph # (Auto) 1.85 (1.18-3.74) K/mm3 [place] # (Auto) 0.90 H (0.24-0.36) K/mm3 Eos # (Auto) 0.14 (0.04-0.36) K/mm3 Baso # (Auto) 0.01 (0.01-0.08) K/mm3 RPR Non-reactive (NONREACTIVE) ASSESSMENT: 26-year-old female -0-0-1 s/p primary section POD #1 for breech presentation, complicated by tobacco use in and currently has nicotine patch in place PLAN: Doing well Breast-feeding with minimal difficulty. Assist as needed Incision healing well. Continue to keep clean and dry. Lochia minimal. Continue to monitor for appropriate lochia. Continue routine post-operative care Continue nicotine patch for tobacco use, patient reports she is interested in smoking cessation aids Anticipate discharge home tomorrow Raul Farley MD 4:35 PM 08/05/2021 Time Documentation
[2021-08-05] MEDS ORDERED: Ibuprofen 600 MG Tab PO PRN (21:30)
[2021-08-06] MEDS: Acetaminophen/oxyCODONE 325-5 MG Tab PO PRN ×4 (00:23→13:48)
[2021-08-06] MEDS ORDERED: Docusate Sodium 100 MG Cap PO PRN (10:14)
[2021-08-06] MEDS: Nicotine 21 MG/24 Hr Patch TRDERM SCH (10:28)
--- NOTE | 2021-08-06 10:38 | PCM.SN.2 ---
- Free Text/Narrative Note: Post Operative Progress Note POD #2 Subjective: Doing well overall. Ambulating without difficulty. Lochia minimal. Voiding without difficulty after removal of the urinary catheter. Passing flatus. Tolerating regular diet without nausea or vomiting. Pain controlled with oral medications. Breast-feeding with minimal difficulty. Objective: Vitals: Vital Signs - 24 hr 08/05/21 08/05/21 08/05/21 14:00 15:00 15:40 Temperature 36.4 C Pulse, 85 Peripheral Respiratory 14 15 15 Rate Blood Pressure 119/64 O2 Sat by Pulse 98 97 99 Oximetry 08/05/21 08/05/21 08/06/21 19:00 20:01 04:27 Temperature 36.6 C 36.3 C Pulse, 87 67 Peripheral Respiratory 14 14 14 Rate Blood Pressure 120/73 120/66 O2 Sat by Pulse 97 96 95 Oximetry 08/06/21 10:07 Temperature 36.4 C Pulse, 86 Peripheral Respiratory 16 Rate Blood Pressure 122/75 O2 Sat by Pulse 100 Oximetry Physical Exam General: Alert and oriented, no acute distress Lungs: Clear to auscultation bilaterally Heart: Regular rate and rhythm Abdomen: Soft, minimal appropriate tenderness, non-distended, fundus midline, nontender and 1 fingerbreadth below the umbilicus Incision: Clean, dry and intact, no erythema, bleeding or drainage with Steri- Strips in place Extremities: No edema ASSESSMENT: 26-year-old female -0-0-1 s/p primary section POD #2 for breech presentation, complicated by tobacco use in and currently has nicotine patch in place PLAN: Doing well Breast-feeding with minimal difficulty. Assist as needed Incision healing well. Continue to keep clean and dry. Lochia minimal. Continue to monitor for appropriate lochia. Continue routine post-operative care Continue nicotine patch for tobacco use, patient declines tobacco cessation aid at this time Anticipate discharge home today Raul Farley MD 10:37 AM 08/06/2021 Time Documentation
--- NOTE | 2021-08-06 10:39 | PCM.DCSUM1 ---
Discharge Summary - Hospital Course Free Text/Narrative:: - General Post-Op/Procedure Note Date of Surgery/Procedure: 08/04/21 Operative Procedure(s): primary section Findings: Viable male, weight 6#12oz, 8/9 apgars at 2110. Normal uterus tubes and ovaries. Breech. Pre Op Diagnosis: breech, 39w1d Post-Op Diagnosis: Same Anesthesia Technique: Epidural Primary Surgeon: Jennifer Plascencia Anesthesia Provider: Zaina Marques School Bus Operator: Willow Yonug Pathology: none Fluid Replacement, Intraop: 1,500 Output, Urine Amount: 150 EBL in mLs: 700 Complications: None Condition: Good Free Text/Narrative:: The patient was taken to the operating room where epidural anesthesia was dosed to surgical levels without difficulty. The patient was prepped and draped in the usual sterile fashion in the dorsal supine position with a leftward tilt. A Pfannenstiel skin incision was made with the scalpel and carried through to the underlying layer of fascia. The fascia was incised in the midline and extended laterally using Spangler scissors. Aida clamps were used to elevate the superior aspect of the fascial incision, which was elevated, and the underlying rectus muscles were dissected off bluntly and using Spangler scissors. Attention was then turned to the inferior aspect of the fascial incision, which in similar fashion was grasped with Aida clamps, elevated, and the underlying rectus muscles were dissected off bluntly and using the spangler. The rectus muscles were dissected in the midline. The peritoneum was entered bluntly; this incision was extended superiorly and inferiorly with good visualization of the bladder. The bladder blade was inserted. The vesicouterine peritoneum was identified and entered sharply using Metzenbaum scissors. This incision was extended laterally and the bladder flap was created digitally. The bladder blade was reinserted. The lower uterine seg ment was incised in a transverse fashion using the scalpel and with digital traction. Clear fluid was noted. The infant was subsequently delivered by usual breech maneuvers. The cord was clamped and cut. The was subsequently handed to the awaiting clerical warehouse worker whose presence had been requested.. The placenta was expressed intact with a three-vessel cord noted. The uterus was exteriorized and cleared of all clots and debris. The uterine incision was repaired in 2 layers using 0 monocryl. Hemostasis was visualized. Hemostasis was visualized bilaterally. The uterus was returned to the abdomen. The uterine incision was reexamined and it was noted to be hemostatic. The pelvis was copiously irrigated. The fascia was closed with 1 PDS suture, and the skin was closed with 3-0 monocryl. Sponge, lap, and instrument counts were correct x2. The patient was stable at the completion of the procedure and was subsequently transferred to the recovery room in stable condition. Diagnosis: Stroke: No - Discharge Data Discharge Date: 08/06/21 Discharge Disposition: Home, Self-Care 01 Condition: Good - Referral to Home Health Primary Care Physician: Jennifer Plascencia MD - Discharge Diagnosis/Problem(s) (1) 39 weeks gestation of SNOMED Code(s): 10524868 ICD Code: Z3A.39 - 39 WEEKS GESTATION OF Status: Acute Current Visit: Yes (2) Breech presentation delivered SNOMED Code(s): 963564624, 308164125 ICD Code: O32.1XX0 - MATERNAL CARE FOR BREECH PRESENTATION, UNSP Status: Acute Current Visit: Yes (3) delivery indicated due to breech presentation SNOMED Code(s): 949120756, 710018312 ICD Code: O32.1XX0 - MATERNAL CARE FOR BREECH PRESENTATION, UNSP Status: Acute Current Visit: Yes (4) delivery delivered SNOMED Code(s): 564847550 ICD Code: O82 - ENCOUNTER FOR DELIVERY WITHOUT INDICATION Status: Acute Current Visit: Yes - Patient Summary/Data Operative Procedure(s) Performed: primary section Complications: None Consults: None Hospital Course: Judith Lainez was admitted for active labor. She was 3 cm dilated on admission. She was GBS negative. She underwent artificial rupture membranes with return of clear fluid. On the subsequent cervical exam it was felt that the was in breech position that was confirmed by ultrasound that showed was in estefania breech position. She was counseled on the risks, benefits and alternatives of a primary section versus breech vaginal delivery and she desired to proceed with section she was taken back to the OR and given additional dosing through her epidural for anesthesia. She was prepped and draped in the normal fashion. On 08/04/2021 she had a delivery of a live male infant at 21:10. Apgars of 8 and 9. Weight of 3050 g (6 pounds 11.6 ounces). She was closed in a normal fashion. There were no complications with the procedure. Please see the operative report for full details. Her post operative course was uneventful. Her pain was well contro lled and she had minimal lochia. She was ambulating, tolerating a regular diet and voiding normally. She was passing flatus and has not had a bowel movement. She was breast feeding without difficulty. She was afebrile and her hematocrit was 30.0 on POD #1. She desired to be discharged home on the morning of POD #2. Her blood type is A+. - Patient Instructions Diet: Regular Diet as Tolerated Activity: Apply Ice, As Tolerated, No Lifting Over 20 Pounds Activity, Other: Nothing in the vagina for 6 weeks Showering/Bathing: May Shower Wound/Incision Care: Keep Operative Site/Wound Site Clean and Dry Notify Provider of: Fever, Increased Pain, Swelling and Redness, Drainage, Nausea and/or Vomiting Other/Special Instructions: Please contact your physician's office if you note any bleeding or pus coming from the abdominal incision. Please contact your physician's office if you have heavy vaginal bleeding enough to soak a pad in less than an hour for several hours. Monitor for any signs of an infection in the breasts with severe pain or redness of the breast. - Discharge Plan *PRESCRIPTION DRUG MONITORING PROGRAM REVIEWED*: Yes *COPY OF PRESCRIPTION DRUG MONITORING REPORT IN PATIENT JENNIFER: No Prescriptions/Med Rec: Docusate Sodium [Colace] 100 mg PO BID PRN #60 capsule PRN Reason: Constipation Acetaminophen/oxyCODONE [Percocet 325-5 MG] 1 - 2 tab PO Q6H PRN #30 tablet PRN Reason: Pain Home Medications: Home Meds Ferrous Sulfate [Iron] 325 mg PO DAILY 08/04/21 [History] No122/Iron/Folic Acid [ Multi Tablet] 1 each PO DAILY 08/04/21 [History] Acetaminophen/oxyCODONE [Percocet 325-5 MG] 1 - 2 tab PO Q6H PRN #30 tablet 08/06/21 [Rx] Docusate Sodium [Colace] 100 mg PO BID PRN #60 capsule 08/06/21 [Rx] Ibuprofen [Motrin] 600 mg PO Q6H PRN #60 tablet 08/06/21 [Rx] Patient Handouts: Care After Delivery Referrals: Jennifer Plascencia MD [Primary Care Provider] - (Follow-up in 2 weeks for routine postoperative/ visit or earlier as needed) - Discharge Summary/Plan Comment DC Time >30 min.: No Total # of Minutes for Discharge Time: 20 minutes - Patient Data Vitals - Most Recent: Last Vital Signs Temp 36.4 C 08/06/21 10:07 Pulse 86 08/06/21 10:07 Resp 16 08/06/21 10:07 BP 122/75 08/06/21 10:07 Pulse Ox 100 08/06/21 10:07 Weight - Most Recent: 76.113 kg I&O - Last 24 hours: Intake & Output 08/05/21 08/06/21 08/06/21 22:59 06:59 14:59 Intake Total 880 Output Total 1950 700 Balance -1070 -700 Med Orders - Current: Current Medications Diphenhydramine HCl (Diphenhydramine 50 Mg/Ml Sdv) 25 mg IVPUSH Q6H PRN PRN Reason: Itching or Nausea Last Admin: 08/05/21 02:48 Dose: 25 mg Documented by: Docusate Sodium (Docusate Sodium 100 Mg Cap) 100 mg PO Q12H PRN PRN Reason: Constipation Last Admin: 08/06/21 10:27 Dose: 100 mg Documented by: Ephedrine Sulfate (Ephedrine 50 Mg/Ml Sdv) 5 mg IVPUSH SEECOMMENT PRN PRN Reason: Other Ibuprofen (Ibuprofen 600 Mg Tab) 600 mg PO Q6H PRN PRN Reason: mild pain or fever Last Admin: 08/06/21 00:26 Dose: 600 mg Documented by: Miscellaneous Information (Remove Nicotine Patch) 1 ea TRDERM DAILY [facility] Last Admin: 08/06/21 10:27 Dose: 1 ea Documented by: Naloxone HCl (Naloxone 0.4 Mg/Ml Sdv) 0.1 mg IVPUSH SEECOMMENT PRN PRN Reason: Respiratory Depression Nicotine (Nicotine 21 Mg/24 Hr Patch) 21 mg TRDERM [facility]ILY [facility] Last Admin: 08/06/21 10:28 Dose: 21 mg Documented by: Oxycodone/Acetaminophen (Acetaminophen/Oxycodone 325-5 Mg Tab) 1 tab PO Q4H PRN PRN Reason: Pain (moderate 4-6) Last Admin: 08/06/21 10:26 Dose: 1 tab Documented by: Oxycodone/Acetaminophen (Acetaminophen/Oxycodone 325-5 Mg Tab) 2 tab PO Q4H PRN PRN Reason: Pain (severe 7-10) Last Admin: 08/06/21 05:50 Dose: 2 tab Documented by: Discontinued Medications Bupivacaine HCl (Bupivacaine 0.5% 30 Ml Sdv) Confirm Administered Dose 30 ml .ROUTE .STK-MED ONE Stop: 08/04/21 20:37 Last Admin: 08/04/21 21:07 Dose: 20 ml Documented by: Bupivacaine HCl (Bupivacaine 0.25% 10 Ml Sdv) 10 ml .ROUTE .STK-MED ONE Stop: 08/04/21 18:01 Cefazolin Sodium (Cefazolin 1 Gm Vial) Confirm Administered Dose 2 gm .ROUTE .STK-MED ONE Stop: 08/04/21 20:38 Citric Acid/Sodium Citrate (Citric Acid/Sodium Citrate Solution 30 Ml Cup) 30 ml PO ONETIME ONE Stop: 08/04/21 20:31 Last Admin: 08/04/21 20:33 Dose: 30 ml Documented by: Citric Acid/Sodium Citrate (Citric Acid/Sodium Citrate Solution 30 Ml Cup) Confirm Administered Dose 30 ml .ROUTE .STK-MED ONE Stop: 08/04/21 20:26 Last Admin: 08/04/21 20:42 Dose: Not Given Documented by: Diphenhydramine HCl (Diphenhydramine 50 Mg/Ml Sdv) 25 mg IVPUSH Q6H PRN PRN Reason: pruritis Diphenhydramine HCl (Diphenhydramine 50 Mg/Ml Sdv) 25 mg IVPUSH Q6H PRN PRN Reason: Pruritis Ephedrine Sulfate (Ephedrine 50 Mg/Ml Sdv) 5 mg IVPUSH ASDIRECTED PRN PRN Reason: Hypotension Fentanyl (Fentanyl 100 Mcg/2 Ml Sdv) 100 mcg EPIDUR Q3H PRN PRN Reason: Pain Last Admin: 08/04/21 17:03 Dose: 100 mcg Documented by: Fentanyl (Fentanyl 100 Mcg/2 Ml Sdv) 50 mcg IVPUSH Q5M PRN PRN Reason: Pain Fentanyl/Bupivacaine HCl (Bupivacaine/Fentanyl/Ns 100 Ml Bag) 100 ml EPIDUR ASDIRECTED PRN PRN Reason: Pain Last Admin: 08/04/21 17:43 Dose: 100 ml Documented by: Ampicillin Sodium 2 gm/ Sodium (Chloride) 100 mls @ 200 mls/hr IV ONETIME ONE Stop: 08/04/21 13:59 Last Admin: 08/04/21 13:57 Dose: 200 mls/hr Documented by: Ampicillin Sodium 1 gm/ Sodium (Chloride) 100 mls @ 200 mls/hr IV Q4H ELDER Last Admin: 08/04/21 22:47 Dose: Not Given Documented by: Oxytocin/Lactated Ringer's (Pitocin In Lr 10 Units/1,000 Ml) 10 unit in 1,000 mls @ 12 mls/hr IV TITRATE ELD[facility]; Protocol Oxytocin/Lactated Ringer's (Pitocin In Lr 10 Units/1,000 Ml) 10 unit in 1,000 mls @ 500 mls/hr IV .CONTINUOUS ELDER; Protocol Lactated Ringer's (Ringers, Lactated) 1,000 mls @ 100 mls/hr IV ASDIRECTED [facility] Last Admin: 08/04/21 20:51 Dose: 999 mls/hr Documented by: Cefazolin Sodium/Dextrose 2 gm (/ Premix) 50 mls @ 100 mls/hr IV ONETIME ONE Stop: 08/04/21 20:55 Last Admin: 08/04/21 22:47 Dose: Not Given Documented by: Azithromycin 500 mg/ Sodium (Chloride) 250 mls @ 250 mls/hr IV ONETIME ONE Stop: 08/04/21 21:29 Last Admin: 08/04/21 20:34 Dose: 250 mls/hr Documented by: Lactated Ringer's (Ringers, Lactated) Confirm Administered Dose 2,000 mls @ as directed .ROUTE .STK-MED ONE Stop: 08/04/21 20:38 Dextrose/Lactated Ringer's (Dextrose 5%-Lactated Ringers) 1,000 mls @ 125 mls/hr IV ASDIRECTED ELDER Stop: 08/05/21 06:45 Last Admin: 08/05/21 00:33 Dose: 125 mls/hr Documented by: Ketorolac Tromethamine (Ketorolac 30 Mg/Ml Sdv) Confirm Administered Dose 30 mg .ROUTE .STK-MED ONE Stop: 08/04/21 20:38 Ketorolac Tromethamine (Ketorolac 30 Mg/Ml Sdv) 30 mg IVPUSH Q6H ELD[facility] Stop: 08/05/21 15:31 Last Admin: 08/05/21 15:15 Dose: 30 mg Documented by: Lidocaine HCl (Lidocaine 1% 50 Ml Mdv) 50 ml INJECT ONETIME ONE Stop: 08/04/21 13:09 Last Admin: 08/04/21 20:42 Dose: Not Given Documented by: Lidocaine/Epinephrine (Lidocaine 2% With Epinephrine 1:200,000 20 Ml Sdv) Confirm Administered Dose 20 ml .ROUTE .STK-MED ONE Stop: 08/04/21 20:42 Meperidine HCl (Meperidine 50 Mg/Ml Vial) 25 mg IVPUSH ONETIME PRN PRN Reason: Shivering Metoclopramide HCl (Metoclopramide 10 Mg/2 Ml Sdv) 10 mg IVPUSH ONETIME ONE Stop: 08/04/21 20:28 Last Admin: 08/04/21 20:34 Dose: 10 mg Documented by: Metoclopramide HCl (Metoclopramide 10 Mg/2 Ml Sdv) Confirm Administered Dose 10 mg .ROUTE .STK-MED ONE Stop: 08/04/21 20:26 Last Admin: 08/04/21 20:42 Dose: Not Given Documented by: Morphine Sulfate (Morphine Pf 10 Mg/10 Ml Sdv) Confirm Administered Dose 10 mg .ROUTE .STK-MED ONE Stop: 08/04/21 20:43 Nalbuphine HCl (Nalbuphine 10 Mg/1 Ml Vial) 10 mg IVPUSH Q2H PRN PRN Reason: Pain Ondansetron HCl (Ondansetron 4 Mg/2 Ml Sdv) 4 mg IVPUSH Q4H PRN PRN Reason: Nausea/Vomiting Ondansetron HCl (Ondansetron 4 Mg/2 Ml Sdv) Confirm Administered Dose 4 mg .ROUTE .STK-MED ONE Stop: 08/04/21 20:38 Ondansetron HCl (Ondansetron 4 Mg/2 Ml Sdv) 4 mg IVPUSH ONETIME PRN PRN Reason: Nausea/Vomiting Ondansetron HCl (Ondansetron 4 Mg/2 Ml Sdv) Confirm Administered Dose 4 mg .ROUTE .STK-MED ONE Stop: 08/04/21 21:14 Oxytocin (Oxytocin 10 Units/1 Ml Sdv) Confirm Administered Dose 10 unit .ROUTE .STK-MED ONE Stop: 08/04/21 20:38 Sodium Bicarbonate (Sodium Bicarbonate 8.4% 50 Meq/50 Ml Sdv) Confirm Administered Dose 50 meq .ROUTE .STK-MED ONE Stop: 08/04/21 20:42 Sodium Chloride (Sodium Chloride 0.9% 10 Ml Syringe) 10 ml FLUSH ASDIRECTED PRN PRN Reason: Keep Vein Open
== END 2021-08-06 13:50 | disposition home or self-care (01) | DRG 788 ==
LOC: JD.OBCHECK 12:31 → JD.OB 12:34 → JD.OBCHECK 13:09 → JD.OB 14:43 → OBSVTOIN 21:10 → JD.OB 21:10 → UNDODISIN 08-06 13:50
PROVIDERS: ADMIT Obstetrics & Gynecology; ATTEND Obstetrics & Gynecology
PROC: 10D00Z1 Extraction of Products of Conception, Low, Open Approach (ICD-10-PCS; principal; 2021-08-04)
PROC: 10907ZC Drainage of Amniotic Fluid, Therapeutic from Products of Conception, Via Natural or Artificial Opening (ICD-10-PCS; 2021-08-04)
DX: O32.1XX0 Maternal care for breech presentation, not applicable or unspecified (principal); Z37.0 Single live birth; O99.02 Anemia complicating childbirth; D64.9 Anemia, unspecified; O99.334 Smoking (tobacco) complicating childbirth; F17.200 Nicotine dependence, unspecified, uncomplicated; Z20.822 Contact with and (suspected) exposure to COVID-19; Z3A.39 39 weeks gestation of pregnancy
CPT/HCPCS: 01961; 01967; 36415; 51702; 59025; 85025; 86592; 86850; 86900; 86901; 94762; 99140; A9270-GY; J0290; J0456; J0690; J1200; J1885; J2270; J2405; J2590; J2765; J3010; J3490; J7050; J7120; J7121; U0002

== ENCOUNTER 2023-02-27 04:48 | Inpatient (IN) | payer MEDICARE, MEDICAID ==
[~2023-02-27 04:48] MED LIST: Lactated Ringers 1,000 ML IV SCH
[2023-02-27] MEDS ORDERED: Metoclopramide 10 MG/2 ML SDV IVPUSH ONE ×2 (05:17→05:30)
[2023-02-27] MEDS ORDERED: Citric Acid/Sodium Citrate Solution 30 ML Cup PO ONE ×2 (05:30)
[2023-02-27] MEDS ORDERED: Sodium Chloride 0.9% 10 ML Syringe FLUSH PRN (05:30)
[2023-02-27] MEDS ORDERED: ceFAZolin 2 GM in Sodium Chloride 0.9% 50 ML IV ONE ×2 (05:30→07:30)
[2023-02-27] MEDS: Lactated Ringers 1,000 ML IV SCH ×2 (05:34→06:38)
[2023-02-27] MEDS ORDERED: Morphine PF 1 MG/ML Amp ONE (06:53)
[2023-02-27] MEDS ORDERED: Oxytocin 10 Units/1 ML SDV ONE (06:53)
[2023-02-27] MEDS ORDERED: Ondansetron 4 MG/2 ML SDV ONE (06:53)
[2023-02-27] MEDS ORDERED: Ketorolac 30 MG/ML SDV ONE (06:53)
[2023-02-27] MEDS ORDERED: Lactated Ringers 2,000 ML ONE (06:53)
[2023-02-27] MEDS ORDERED: ceFAZolin 2 GM Vial ONE (06:58)
[2023-02-27] MEDS ORDERED: Bupivacaine 0.5% 30 ML SDV ONE (07:14)
[2023-02-27] MEDS ORDERED: Ondansetron 4 MG/2 ML SDV IVPUSH PRN (07:16)
[2023-02-27] MEDS ORDERED: diphenhydrAMINE 50 MG/ML SDV IVPUSH PRN (07:16)
[2023-02-27] MEDS ORDERED: fentaNYL 100 MCG/2 ML SDV IVPUSH PRN (07:16)
[2023-02-27] MEDS ORDERED: Meperidine 50 MG/ML Vial IVPUSH PRN (07:16)
[2023-02-27] MEDS ORDERED: Oxytocin/Lactated Ringers 10 UNIT/1,000 ML BAG IV ONE (07:30)
[2023-02-27] MEDS ORDERED: Oxytocin/Lactated Ringers 10 UNIT/1,000 ML BAG IV SCH (08:30)
[2023-02-27] MEDS ORDERED: Sodium Chloride 0.9% 10 ML Syringe FLUSH SCH (09:00)
[2023-02-27] MEDS ORDERED: Dextrose 5%-Lactated Ringers 1,000 ML IV SCH (09:18)
[2023-02-27] MEDS ORDERED: Naloxone 0.4 MG/ML SDV IVPUSH PRN (09:18)
[2023-02-27] MEDS ORDERED: ePHEDrine 50 MG/ML SDV IVPUSH PRN (09:18)
[2023-02-27] MEDS: diphenhydrAMINE 50 MG/ML SDV IVPUSH PRN ×2 (09:56→20:41)
[2023-02-27] MEDS ORDERED: Acetaminophen/oxyCODONE 325-5 MG Tab PO PRN ×2 (11:13→11:14)
[2023-02-27] MEDS: Ketorolac 30 MG/ML SDV IVPUSH SCH ×2 (14:12→20:40)
[2023-02-28] MEDS: Ketorolac 30 MG/ML SDV IVPUSH SCH (03:17)
[2023-02-28] MEDS ORDERED: Ibuprofen 600 MG Tab PO PRN (08:10)
[2023-02-28] MEDS ORDERED: Docusate Sodium 100 MG Cap PO PRN (09:28)
== END 2023-02-28 13:20 | disposition home or self-care (01) | DRG 788 ==
LOC: JD.OB 04:48
PROVIDERS: ADMIT Obstetrics & Gynecology; ATTEND Obstetrics & Gynecology
PROC: 10D00Z1 Extraction of Products of Conception, Low, Open Approach (ICD-10-PCS; principal; 2023-02-27)
DX: O34.211 Maternal care for low transverse scar from previous cesarean delivery (principal); O99.02 Anemia complicating childbirth; D64.9 Anemia, unspecified; Z3A.39 39 weeks gestation of pregnancy; Z37.0 Single live birth
CPT/HCPCS: 01961; 36415; 59025; 85025; 86592; 86850; 86900; 86901; 94762; A9270-GY; J0690; J1200; J1885; J2274; J2405; J2590; J2765; J3490; J7120; J7121

== ENCOUNTER 2025-01-31 15:55 | Emergency (ER) | payer MEDICAID, MEDICARE ==
[2025-01-31] MEDS: Lidocaine 1% 10 ML MDV INJECT ONE (16:36)
[2025-01-31] MEDS: LORazepam 1 MG Tab PO ONE (16:36)
== END 2025-01-31 17:30 | disposition home or self-care (01) ==
LOC: JD.ED 15:55
DX: S61.214A Laceration without foreign body of right ring finger without damage to nail, initial encounter (principal); S61.216A Laceration without foreign body of right little finger without damage to nail, initial encounter; F17.210 Nicotine dependence, cigarettes, uncomplicated; Z79.899 Other long term (current) drug therapy; W26.0XXA Contact with knife, initial encounter
CPT/HCPCS: 12001; 73140; 99283; A9270; J2003; 99284